=== PATIENT | female | born 1950 | race Caucasian/White ===

== ENCOUNTER → 2019-06-23 16:44 | Outpatient (CLI) | payer MEDICARE, OTHER, SELFPAY ==
--- NOTE | 2019-06-23 16:51 | CT_ITS ---
STUDY: CT SOFT TISSUE NECK WITH CONTRAST REASON FOR EXAM: Female, 69 years old. Neck mass RADIATION DOSAGE (If Supplied By Facility): CTDIvol = ( 22.94 ) mGy, DLP = ( 549.90 ) mGycm TECHNIQUE: The patient was scanned in a multi-detector CT scanner. High resolution transaxial imaging was performed following intravenous administration of 75 IV Isovue 370. Sagittal and coronal images were reconstructed. Individualized dose optimization techniques were used for this CT. COMPARISON: None. FINDINGS: Several images are limited due to scanning artifact caused by metallic dental work. Normal bilateral parotid glands. Normal bilateral jingle writer spaces. Normal bilateral parapharyngeal spaces. Normal bilateral carotid spaces. Normal bilateral sublingual and submandibular glands and spaces. Normal visualized nasopharynx. Normal retropharyngeal space. Normal perivertebral space. Normal visualized bilateral faucial tonsils. The visualized tongue, tongue base and oropharynx are normal. The visualized cervical lymph nodes (levels I-) are within normal size limits, and maintain normal morphology. There is no demonstrated solid or cystic mass lesion. There is no abnormal contrast enhancement. Normal epiglottis, bilateral vallecula and hypopharynx. The pre-epiglottic and paraglottic adipose spaces are normal. Normal visualized bilateral piriform sinuses, aryepiglottic folds, vocal cords, and arytenoid-cricoid articulations. Normal subglottic trachea. There is an enhancing right thyroid lobe nodule measuring 2.4 x 1.3 cm. Normal visualized pulmonary apices. Normal visualized paranasal sinuses. There is multilevel degenerative changes of the cervical spine. CT/Soft Tissue Neck WITH Contrast IMPRESSION: Enhancing right thyroid lobe nodule measuring 2.4 x 1.3 cm. Ultrasound correlation is recommended. Mild degenerative changes of the mid cervical spine. No cervical mass or adenopathy is identified. Electronically Signed: Jared Coburn MD at 19:00 EDT , Service support ,
== END ==
PROVIDERS: Family Provider Family Medicine; PCP Family Medicine; Referring Provider Otolaryngology; Visit Provider Otolaryngology
DX: R22.1 Localized swelling, mass and lump, neck (principal)
CPT/HCPCS: 70491; Q9967

== ENCOUNTER 2021-03-11 18:23 | Inpatient (IN) | payer MEDICARE, OTHER, SELFPAY ==
[2021-03-11 18:31] VITALS: BP 134/67; PULSE 81; RESP 18; TEMP 36.8; O2SAT 94
[2021-03-11 19:54] VITALS: BMI 35.2
--- NOTE | 2021-03-11 20:44 | HP.PCM_ITS ---
HPI - General General Date of Admission: 03/11/21 HPI Narrative 03/10/2021 ERIKA CANCHOLA, is a 70 Female who presents to [facility] with right hip pain status post fall. Patient was in her usual stage of health. She was gardening and she has to bend from the waist. She injured right knee 3 weeks ago, She saw her PCP previous week and was told it maybe a hamstring injury or ligamentous injury, no imaging done at that time. She has failed Lidoderm patches, NSAIDs. While gardening on day of admission, her right knee locked up and she fell landing on the right side. She hit her right hip and did not lose consciousness. No dizziness or lighthead edness preceded the fall. She was unable to stand up or move because of right hip pain. She crawled to her smoke house and called for help. In ER, Blood tests negative, COVID19 negative. X-ray right knee, hip negative for fracture, dislocation, but there is osteoarthritis right knee with moderate suprapatellar effusion. Percocet x 2 with little relief. In hospital, Tylenol, Toradol, Dilaudid for pain. CT right lower extremity without contrast ordered, results not available. PT/OT consult. PFSH Home Medications acetaminophen [Tylenol] 325 mg PO Q6H 03/11/21 [History Last Taken Unknown] alum-mag hydroxide-simeth [Mylanta] 1 tab PO Q6H PRN PRN 03/11/21 [History Last Taken Unknown] apremilast [Otezla] 30 mg PO DAILY 03/11/21 [History Last Taken Unknown] atorvastatin [Lipitor] 10 mg PO DAILY 03/11/21 [History Last Taken Unknown] biotin 1,000 mcg PO DAILY 03/11/21 [History Last Taken Unknown] bupropion HCl 150 mg PO BID 03/11/21 [History Last Taken Unknown] calcium carbonate-vitamin D3 [Calcium 600 + D(3)] 1 cap PO DAILY 03/11/21 [History Last Taken Unknown] cholecalciferol (vitamin D3) [Vitamin D3] 10 mcg PO QHS 03/11/21 [History Last Taken Unknown] diphenhydramine HCl [Benadryl] 25 mg PO QHS 03/11/21 [History Last Taken Unknown] docusate sodium [Colace] 100 mg PO BID 03/11/21 [History Last Taken Unknown] enoxaparin [Lovenox] 40 mg SUBCUT Q24H 03/11/21 [History Last Taken Unknown] esomeprazole magnesium [Nexium] 40 mg PO DAILY 03/11/21 [History Last Taken Unknown] hydromorphone 1 mg IV Q6H PRN 03/11/21 [History Last Taken Unknown] ketorolac 15 mg IV Q6H PRN 03/11/21 [History Last Taken Unknown] ondansetron HCl [Zofran] 4 mg IV Q6H PRN PRN 03/11/21 [History Last Taken Unknown] pediatric multivitamin no.76 [Flintstones Complete] 2 tab PO DAILY 03/11/21 [History Last Taken Unknown] Allergy/AdvReac Type Severity Reaction Status Date / Time No Known Allergies Allergy Verified 03/11/21 18:32 Family History (Updated 03/11/21 @ 20:[address] Alejandro Gillespie MD) Mother Kidney disease Father Brain cancer Surgical History (Updated 03/11/21 @ 20:[address] Alejandro Gillespie MD) History of bilateral cataract extraction History of right salpingo-oophorectomy History of Brittny-en-Y gastric bypass Social History (Updated 03/11/21 @ 20:[address] Alejandro Gillespie MD) household members: none Smoking Status: Former smoker Tobacco: How many years used: 40 alcohol intake: former details: Glass of wine with dinner ROS Constitutional Constitutional: Denies chills, fever(s) or weight gain ENT HEENT: Denies headache(s), nasal congestion or nasal discharge Cardiovascular Cardiovascular: Denies chest pain or palpitations Respiratory/Chest Respiratory/Chest: Denies cough, excessive phlegm production or shortness of breath with exertion Gastrointestinal Gastrointestinal: Denies abdominal pain, nausea or vomiting Genitourinary Genitourinary: Denies dysuria Musculoskeletal Musculoskeletal: Denies joint pain or joint swelling Integumentary Integumentary: Denies rash or wounds Neurologic Neurologic: Denies focal weakness, numbness or tingling Psychiatric Psychiatric: Reports auditory hallucinations; Denies anxiety, depression, homicidal ideation or suicidal ideation Vital Signs Vital Signs Vital Signs: 03/11/21 18:31 Temperature 98.2 F Temperature Source Temporal Pulse Rate 81 Respiratory Rate 18 Blood Pressure 134/67 H Blood Pressure Mean 89 Blood Pressure Source Monitor Blood Pressure Position Semi-Fowlers Blood Pressure Location Right Arm Pulse Ox 94 Oxygen Delivery Method Room Air Physical Exam Const alert and oriented x3 General Appearance: cooperative HEENT normocephalic Eyes PERRL and EOMs intact bilaterally Neck supple, no JVD and no carotid bruits Resp normal respiratory effort, normal air movement and clear to auscultation bilaterally Cardio regular rate and regular rhythm GI normal to inspection, nondistended, normoactive bowel sounds, non-tender and non-distended Extremity normal capillary refill General Extremity: Negative for edema Skin no rashes or lesions noted General Skin Exam: no breakdown Psych affect normal Appearance: appropriate Lab / Micro Data Result Diagrams: 03/12/21 05:17 03/12/21 05:17 Assessment & Plan Assessment/Plan (1) Debility: (2) Right hip pain: (3) Right knee pain: (4) Osteoarthritis of right knee: (5) Hyperlipidemia: (6) Plaque psoriasis: (7) Osteopenia: (8) Gastroesophageal reflux: (9) Depression: (10) Iron deficiency anemia: (11) Vitamin B12 deficiency: PLAN: 70 year old female with below past medical history hospitalized for intractable right hip pain, right knee pain, admitted to TCU with debility, here for rehabilitation, strengthening, prior to discharge home alone. * Debility - PT/OT. * Pain - Tylenol 1000MG TID, Tramadol 50MG Q6H PRN pain (1-5), Oxycodone 10MG Q4H PRN pain (6-10). * Bowel - Miralax 17GM daily, Senna/colace 2 tablets BID, Dulcolax 10MG daily PRN. * Adult immunization - Administer Prevnar 13, Pneumovax 23, COVID19 vaccine as appropriate. * DVT prophylaxis - Lovenox 40MG SC daily. * Hyperlipidemia - Atorvastatin 10MG daily. * Depression - Wellbutrin 150MG BID, stable chronic long-term use, GDR not recommended. * Calcium deficiency - Calcium D daily. * Vitamin B12 deficiency - B12 1000MCG daily. * Indigestion - Mylanta II 30ML Q4H PRN. * Nausea - Zofran 4MG ODT Q6H PRN. * GERD - Pantoprazole 40MG daily. * Insomnia - Melatonin 10MG QHS. * Right knee pain - Medrol dose pack. * Muscle spasm - Baclofen 10MG BID.
[2021-03-11] MEDS: Acetaminophen 500 MG Tablet 1000 MG PO (23:10)
[2021-03-11] MEDS: MELATONIN 10 MG TABLET PO (23:11)
[2021-03-12 04:39] VITALS: BP 124/56; PULSE 79; RESP 18; TEMP 36.2; O2SAT 94
[2021-03-12] MEDS: traMADol 50 MG Tablet PO ×2 (04:43→10:46)
[2021-03-12] MEDS: Atorvastatin Calcium 10 MG Tablet PO (04:45)
[2021-03-12] MEDS: buPROPion (SR) 150 MG Tablet.SA PO ×2 (04:54→17:56)
[2021-03-12 05:47] LABS: Absolute Lymphocyte Count 1.25 X10^3/uL (0.83-4.51); Absolute Neutrophil Count 2.2 X10^3/uL (2.0-7.7); Basophil# 0.02 X10^3/uL; Basophil% 0.5 % (0-1); Eosinophil# 0.08 X10^3/uL; Hematocrit 39.9 % (37-47); Hemoglobin 12.5 g/dL (12.0-15.0); Lymphocyte # 1.25 X10^3/ul (0.83-4.51); Lymphocyte % 31.1 % (19-41); Mean Corp Hgb Conc 31.3 g/dL (32-36); Mean Corpuscular Hgb 30.8 pg (27.0-32.0); Mean Corpuscular Volume 98.3 fL (81-99); Mean Platelet Vol. 11.3 fl (6.2-12.0); Monocyte# 0.44 X10^3/uL; Monocyte% 10.9 % (0-10); NRBC Flagged by Analyzer 0 % (0-5); Neutrophil # 2.23 X10^3/uL (2.7-7.7); Neutrophil % 55.5 % (47-70); Platelet Count 240 K/mm3 (150-450); RBC Distribution Width CV 12.7 % (11.6-14.6); Red Blood Count 4.06 M/mm3 (4.2-5.4)
[2021-03-12] MEDS: Enoxaparin 40 MG/0.4 ML Syringe SC (05:47)
[2021-03-12] MEDS: Acetaminophen 500 MG Tablet 1000 MG PO ×3 (05:47→20:40)
[2021-03-12 06:29] LABS: Anion Gap 4 (5-15); BUN 23 mg/dL (7-18); BUN/Creat Ratio 33.3 RATIO (10-20); Calcium,Total 9.2 mg/dL (8.5-10.1); Chloride 105 mmol/L (98-107); Creatinine, Serum 0.69 mg/dL (0.55-1.02); EST Glomerular Filtration Rate 90 mL/min (>60); Est Glom Filt Rate - Afr Amer 108 mL/min (>60); Estimated Creatinine Clearance 48.45 ml/min; Glucose 101 mg/dL (74-106); Potassium 3.9 mmol/L (3.5-5.1); Sodium Level 138 mmol/L (136-145)
[2021-03-12] MEDS: Cyanocobalamin 500 MCG Tablet 1000 MCG PO (08:35)
[2021-03-12] MEDS: Calcium Carb/Vitamin D 1 TABLET Tablet PO (08:35)
[2021-03-12] MEDS: Baclofen 10 MG Tablet PO ×2 (08:39→17:56)
[2021-03-12 10:00] VITALS: PULSE 74; RESP 18; O2SAT 94
[2021-03-12] MEDS: Tuberculin,Purif.prot.deriv. 50 TU/ML Vial 5 ML ID (10:58)
[2021-03-12] MEDS: MethylPREDNISolone DosePak 4 MG BOX PO ×3 (13:00→20:41)
--- NOTE | 2021-03-12 13:04 | CASEMGMT ---
Social Work Note SW met w/pt for initial assessment. CODE status reviewed, pt confirmed is a full code. MOLST form reviewed, communication to physician, form placed in chart. SW reviewed w/pt the Medicare group home benefit, explained pt is covered until 03/31, and on day 21 a copay of $186 would begin. Pt states her [place] may cover the copay, though pt does not anticipate needing to be here longer than 20 days. SW encouraged pt to call her insurance to find out about coverage for the copay days. Pt also inquired if she needs surgery and then needs to return, how this works. SW explained that if she left TCU and came back, coverage would picker packer on the day it left off. SW explained she needs to be facility free for 60 full days before getting coverage back. Upon discussing pt being her further, she had thought she was coming to rehab, not TCU. However, pt is in agreement w/being here, as she recognizes that she may not be able to do the amount of therapy required in rehab at present. We did talk about if she has surgery and wants to try for rehab after that, it may be possible for pt to go to rehab then--explained that we would not be able to know however until pt actually has surgery and after that. Pt states understanding. As of now, pt plans to return home from TCU, is open to home care vs. outpt PT. SW will continue to follow for discharge needs. RICHARD Rosas
--- NOTE | 2021-03-12 14:04 | PHA.CONS_ITS ---
Progress Note - Pharmacy Subjective: TCU Admission Objective: Allergies No Known Allergies Allergy (Verified 03/11/21 18:32) Current Medications Generic Name Dose Route Start Last Admin Trade Name Freq PRN Reason Stop Dose Admin Acetaminophen 1,000 mg 03/11/21 22:00 03/12/21 13:05 Acetaminophen 500 Mg Tablet PO 1,000 mg TID SULEIMAN Administration Al Hydroxide/Mg Hydroxide 30 ml 03/11/21 20:36 Mag Hydrox/Al Hydrox/Simeth 30 Ml Udc PO Q6H PRN PRN Stomach Upset Atorvastatin Calcium 10 mg 03/12/21 06:00 03/12/21 04:45 Atorvastatin Calcium 10 Mg Tablet PO 10 mg DAILY SULEIMAN Administration Baclofen 10 mg 03/12/21 18:00 Baclofen 10 Mg Tablet PO BID SULEIMAN Bisacodyl 10 mg 03/11/21 21:14 Bisacodyl 5 Mg Tablet PO DAILY PRN Constipation Bupropion HCl 150 mg 03/12/21 06:00 03/12/21 04:54 Bupropion (Sr) 150 Mg Tablet.Sa PO 150 mg BID SULEIMAN Administration Calcium/Vitamin D 1 tablet 03/12/21 08:00 03/12/21 08:35 Calcium Carb/Vitamin D 1 Tablet Tablet PO 1 tablet BREAKFAST SULEIMAN Administration Cyanocobalamin 1,000 mcg 03/12/21 08:00 03/12/21 08:35 Cyanocobalamin 500 Mcg Tablet PO 1,000 mcg BREAKFAST SULEIMAN Administration Enoxaparin Sodium 40 mg 03/12/21 06:00 03/12/21 05:47 Enoxaparin 40 Mg/0.4 Ml Syringe SC 40 mg DAILY@0600 SULEIMAN Administration Melatonin 10 mg 03/11/21 22:00 03/11/21 23:11 Melatonin 10 Mg Tablet PO 10 mg QHS SULEIMAN Administration Methylprednisolone 12 mg 03/12/21 12:00 03/12/21 13:00 Methylprednisolone Dosepak 4 Mg Box PO 03/17/21 04:59 12 mg 1200 SULEIMAN Administration Taper Multi-Ingredient Cream 1 applic 03/12/21 18:00 Mineral Oil/Petrolatum,White Jar TOPICAL BID [facility] Protocol Ondansetron HCl 4 mg 03/11/21 21:14 Ondansetron Odt 4 Mg Tablet PO Q8H PRN PRN NAUSEA Oxycodone HCl 10 mg 03/11/21 21:14 Oxycodone 5 Mg Tablet PO Q4H PRN PRN Pain Score 6-10 Pantoprazole Sodium 40 mg 03/12/21 06:00 03/12/21 05:13 Pantoprazole Sodium 40 Mg Tablet PO Not Given DAILY [facility] Polyethylene Glycol 17 gm 03/12/21 06:00 03/12/21 04:49 Polyethylene Glycol 3350 17 Gm Packet PO Not Given DAILY [facility] Polysaccharide Iron Complex 150 mg 03/13/21 08:00 Iron Polysaccharide Complex [facility] Senna/Docusate Sodium 2 tablet 03/12/21 06:00 03/12/21 04:54 Senna/Docusate Sodium 1 Tablet PO Not Given BID SULEIMAN Tramadol HCl 50 mg 03/11/21 21:14 03/12/21 10:46 Tramadol 50 Mg Tablet PO 50 mg Q6H PRN PRN Administration Pain Score 1-5 Tuberculin PPD 5 tu 03/19/21 10:00 Tuberculin,Purif.Prot.Deriv. 50 Tu/Ml Vial ID 03/19/21 10:01 X1 ONE Problem List (Last Reviewed 03/11/21 @ 20:[address] Alejandro Gillespie MD) Vitamin B12 deficiency (Acute) Iron deficiency anemia (Acute) Depression (Acute) Gastroesophageal reflux (Acute) Osteopenia (Acute) Plaque psoriasis (Acute) Hyperlipidemia (Acute) Osteoarthritis of right knee (Acute) Right knee pain (Acute) Right hip pain (Acute) Debility (Acute) Vital Signs Temp Pulse Resp BP Pulse Ox 97.1 F L 74 18 124/56 H 94 03/12/21 04:39 03/12/21 10:00 03/12/21 10:00 03/12/21 04:39 03/12/21 10:00 Oxygen Delivery Method Room Air Weight: 96.162 kg Body Mass Index (BMI) 35.2 Sodium 138 mmol/L (136-145) 03/12/21 05:17 Potassium 3.9 mmol/L (3.5-5.1) 03/12/21 05:17 Chloride 105 mmol/L (98-107) 03/12/21 05:17 Carbon Dioxide 29.0 mmol/L (21.0-32.0) 03/12/21 05:17 Anion Gap 4 (5-15) L 03/12/21 05:17 BUN 23 mg/dL (7-18) H 03/12/21 05:17 Creatinine 0.69 mg/dL (0.55-1.02) 03/12/21 05:17 Est GFR (MDRD) Af Amer 108 mL/min (>60) 03/12/21 05:17 Est GFR (MDRD) Non-Af 90 mL/min (>60) 03/12/21 05:17 BUN/Creatinine Ratio 33.3 RATIO (10-20) H 03/12/21 05:17 Glucose 101 mg/dL (74-106) 03/12/21 05:17 Assessment/Plan: 1. Pain: acetaminophen 1000mg PO TID, tramadol 50mg PO Q6H PRN pain (1-5) and oxycodone 10mg PO Q4H PRN pain (6-10). Please continue to monitor pain, PRN usage, constipation, and respiratory depression. 2. DVT prophylaxis: enoxaparin 40mg SC daily. Please continue to monitor renal function, platelets (last 240,000), hemoglobin (last 12.5g/dL) and S/S of bleeding. 3. Right knee pain: Medrol dose pack. Please continue to monitor taper through 03/17/21 and blood glucose (last 101 mg/dL).? *4. Hyperlipidemia: atorvastatin 10mg PO daily. Please considering ordering lipid panel. Patient does not have one in the chart. Thanks. 5. Indigestion/Nausea: Mylanta II 30ml PO Q6H PRN stomach upset and ondansetron ODT 4mg PO Q8H PRN nausea. Please continue to monitor stomach upset, nausea, and PRN usage. 6. GERD: pantoprazole 40mg PO daily. Please continue to monitor S/S of GERD and diarrhea. 7. Insomnia: melatonin 10mg PO QHS. Please continue to monitor insomnia. 8. Muscle spasm: baclofen 10mg PO BID. Please continue to monitor S/S of muscle spasm.? *9. Calcium deficiency/Vitamin B12 deficiency/Iron deficiency: Calcium/vitamin D 1T PO daily, cyanocobalamin 1000mcg PO daily and Ferrex 150mg PO daily with meals. Please consider ordering Vitamin D and Vitamin B12 levels if clinically appropriate. Patient does not have either level in chart. Thanks. Please continue to monitor calcium?(last 9.2 mg/dL), hemoglobin (last 12.5g/dL) and for dark stools. Psychotropic Medications: 1. Depression: bupropion SR 150mg PO BID. Please continue to monitor HR (last 79) and S/S of depression. Please see physician note regarding GDR.? Unnecessary Medications: None Bowel Regimen: Miralax 17gm PO daily, senna/docusate 2T PO BID and bisacodyl 10mg PO daily PRN constipation. Please continue to monitor constipation and PRN usage.? Date of Note:: 03/12/21
[2021-03-12 14:59] VITALS: BP 147/64; PULSE 72; RESP 17; TEMP 36.3; O2SAT 96
[2021-03-12] MEDS: MELATONIN 10 MG TABLET PO (20:40)
[2021-03-13 03:53] VITALS: BP 112/49; PULSE 80; RESP 18; TEMP 36.6; O2SAT 96
[2021-03-13] MEDS: Acetaminophen 500 MG Tablet 1000 MG PO ×3 (04:04→22:00)
[2021-03-13] MEDS: Enoxaparin 40 MG/0.4 ML Syringe SC (04:05)
[2021-03-13] MEDS: Pantoprazole Sodium 40 MG Tablet PO (04:05)
[2021-03-13] MEDS: Atorvastatin Calcium 10 MG Tablet PO (04:05)
[2021-03-13] MEDS: Baclofen 10 MG Tablet PO ×2 (04:05→17:39)
[2021-03-13] MEDS: buPROPion (SR) 150 MG Tablet.SA PO ×2 (04:05→17:39)
[2021-03-13] MEDS: Cyanocobalamin 500 MCG Tablet 1000 MCG PO (07:51)
[2021-03-13] MEDS: Iron Polysaccharide Complex 150 MG CAPSULE PO (07:51)
[2021-03-13] MEDS: Calcium Carb/Vitamin D 1 TABLET Tablet PO (07:51)
[2021-03-13] MEDS: MethylPREDNISolone DosePak 4 MG BOX PO ×4 (07:51→22:01)
[2021-03-13] MEDS: traMADol 50 MG Tablet PO (11:28)
[2021-03-13 14:28] VITALS: BP 147/72; PULSE 89; RESP 18; TEMP 36.8; O2SAT 95
[2021-03-13 22:00] VITALS: RESP 16
[2021-03-13] MEDS: DiphenhydrAMINE 25 MG Capsule PO (22:01)
[2021-03-13] MEDS: MELATONIN 10 MG TABLET PO (22:01)
[2021-03-14] MEDS: Acetaminophen 500 MG Tablet 1000 MG PO ×3 (04:35→21:13)
[2021-03-14] MEDS: Enoxaparin 40 MG/0.4 ML Syringe SC (04:37)
[2021-03-14] MEDS: buPROPion (SR) 150 MG Tablet.SA PO ×2 (04:37→17:38)
[2021-03-14] MEDS: Pantoprazole Sodium 40 MG Tablet PO (04:37)
[2021-03-14] MEDS: Baclofen 10 MG Tablet PO ×2 (04:37→17:39)
[2021-03-14] MEDS: Atorvastatin Calcium 10 MG Tablet PO (04:37)
[2021-03-14 04:50] VITALS: BP 128/68; PULSE 70; RESP 16; TEMP 36.4; O2SAT 95
[2021-03-14] MEDS: Cyanocobalamin 500 MCG Tablet 1000 MCG PO (07:53)
[2021-03-14] MEDS: Calcium Carb/Vitamin D 1 TABLET Tablet PO (07:53)
[2021-03-14] MEDS: Iron Polysaccharide Complex 150 MG CAPSULE PO (07:53)
[2021-03-14] MEDS: MethylPREDNISolone DosePak 4 MG BOX PO ×4 (07:54→21:12)
--- NOTE | 2021-03-14 11:07 | PCA ---
Addendum entered by Candie Cedeño 03/14/21 13:11: per patient daughter will now take her to her [facility] appt. I called [facility] to cancel transport Original Note: Scheduled appt with Dr. Martini at [facility] for WednesdayMarch 21 @ 2pm. Spoke with Meagan at [facility] to let her know pt will be going by w/c transport and will not have any friend/family to accompany her. [facility] to lease picker at noon. Nursing update
[2021-03-14] MEDS: traMADol 50 MG Tablet PO (12:36)
[2021-03-14 14:25] VITALS: BP 156/87; PULSE 89; RESP 16; TEMP 36.7; O2SAT 94
[2021-03-14 16:46] VITALS: PULSE 77; RESP 16; O2SAT 96
[2021-03-14] MEDS: DiphenhydrAMINE 25 MG Capsule PO (21:12)
[2021-03-14] MEDS: MELATONIN 10 MG TABLET PO (21:13)
[2021-03-15] MEDS: Acetaminophen 500 MG Tablet 1000 MG PO ×3 (04:34→20:56)
[2021-03-15] MEDS: Pantoprazole Sodium 40 MG Tablet PO (04:35)
[2021-03-15] MEDS: Atorvastatin Calcium 10 MG Tablet PO (04:35)
[2021-03-15] MEDS: Enoxaparin 40 MG/0.4 ML Syringe SC (04:35)
[2021-03-15] MEDS: Baclofen 10 MG Tablet PO ×2 (04:35→17:00)
[2021-03-15] MEDS: buPROPion (SR) 150 MG Tablet.SA PO ×2 (04:36→16:59)
[2021-03-15 04:41] VITALS: BP 134/66; PULSE 70; RESP 16; TEMP 36.8; O2SAT 99
[2021-03-15] MEDS: traMADol 50 MG Tablet PO (06:31)
[2021-03-15] MEDS: MethylPREDNISolone DosePak 4 MG BOX PO ×3 (08:04→21:04)
[2021-03-15] MEDS: Iron Polysaccharide Complex 150 MG CAPSULE PO (08:05)
[2021-03-15] MEDS: Cyanocobalamin 500 MCG Tablet 1000 MCG PO (08:05)
[2021-03-15] MEDS: Calcium Carb/Vitamin D 1 TABLET Tablet PO (08:05)
[2021-03-15 14:06] VITALS: BP 135/68; PULSE 62; RESP 18; TEMP 36.4; O2SAT 98
[2021-03-15] MEDS: MELATONIN 10 MG TABLET PO (20:57)
[2021-03-15] MEDS: DiphenhydrAMINE 25 MG Capsule PO (21:04)
[2021-03-16 05:00] VITALS: BP 135/73; PULSE 66; RESP 16; TEMP 36.6; O2SAT 100
[2021-03-16] MEDS: Enoxaparin 40 MG/0.4 ML Syringe SC (06:09)
[2021-03-16] MEDS: Acetaminophen 500 MG Tablet 1000 MG PO ×3 (06:09→21:36)
[2021-03-16] MEDS: Atorvastatin Calcium 10 MG Tablet PO (06:10)
[2021-03-16] MEDS: Pantoprazole Sodium 40 MG Tablet PO (06:10)
[2021-03-16] MEDS: buPROPion (SR) 150 MG Tablet.SA PO ×2 (06:10→16:57)
[2021-03-16] MEDS: Baclofen 10 MG Tablet PO ×2 (06:10→16:57)
[2021-03-16] MEDS: MethylPREDNISolone DosePak 4 MG BOX PO ×2 (08:45→21:37)
[2021-03-16] MEDS: Iron Polysaccharide Complex 150 MG CAPSULE PO (08:45)
[2021-03-16] MEDS: Calcium Carb/Vitamin D 1 TABLET Tablet PO (08:46)
[2021-03-16] MEDS: Cyanocobalamin 500 MCG Tablet 1000 MCG PO (08:46)
[2021-03-16 14:20] VITALS: BP 130/70; PULSE 74; RESP 16; TEMP 36.7; O2SAT 93
[2021-03-16] MEDS: MELATONIN 10 MG TABLET PO (21:39)
[2021-03-16] MEDS: DiphenhydrAMINE 25 MG Capsule PO (21:40)
[2021-03-17 05:00] VITALS: BP 112/66; PULSE 74; RESP 18; TEMP 36.6; O2SAT 97
[2021-03-17] MEDS: buPROPion (SR) 150 MG Tablet.SA PO ×2 (05:03→17:29)
[2021-03-17] MEDS: Pantoprazole Sodium 40 MG Tablet PO (05:03)
[2021-03-17] MEDS: Enoxaparin 40 MG/0.4 ML Syringe SC (05:03)
[2021-03-17] MEDS: Acetaminophen 500 MG Tablet 1000 MG PO ×3 (05:03→20:02)
[2021-03-17] MEDS: Atorvastatin Calcium 10 MG Tablet PO (05:03)
[2021-03-17] MEDS: Baclofen 10 MG Tablet PO ×2 (05:03→17:29)
[2021-03-17] MEDS: Cyanocobalamin 500 MCG Tablet 1000 MCG PO (08:04)
[2021-03-17] MEDS: Iron Polysaccharide Complex 150 MG CAPSULE PO (08:04)
[2021-03-17] MEDS: Calcium Carb/Vitamin D 1 TABLET Tablet PO (08:04)
[2021-03-17 12:59] VITALS: PULSE 76; O2SAT 95
[2021-03-17 13:40] VITALS: BP 125/62; PULSE 81; RESP 16; TEMP 36.4; O2SAT 99
[2021-03-17] MEDS: MELATONIN 10 MG TABLET PO (20:01)
[2021-03-17] MEDS: DiphenhydrAMINE 25 MG Capsule PO (20:01)
[2021-03-18 05:20] VITALS: BP 118/53; PULSE 65; RESP 16; TEMP 36.8; O2SAT 95
[2021-03-18] MEDS: Baclofen 10 MG Tablet PO ×2 (05:23→16:58)
[2021-03-18] MEDS: Atorvastatin Calcium 10 MG Tablet PO (05:23)
[2021-03-18] MEDS: Pantoprazole Sodium 40 MG Tablet PO (05:24)
[2021-03-18] MEDS: Acetaminophen 500 MG Tablet 1000 MG PO ×3 (05:24→22:26)
[2021-03-18] MEDS: Enoxaparin 40 MG/0.4 ML Syringe SC (05:24)
[2021-03-18] MEDS: buPROPion (SR) 150 MG Tablet.SA PO ×2 (05:24→16:58)
[2021-03-18] MEDS: Cyanocobalamin 500 MCG Tablet 1000 MCG PO (08:01)
[2021-03-18] MEDS: Iron Polysaccharide Complex 150 MG CAPSULE PO (08:01)
[2021-03-18] MEDS: Calcium Carb/Vitamin D 1 TABLET Tablet PO (08:01)
[2021-03-18 12:40] VITALS: PULSE 70; RESP 18; O2SAT 97
[2021-03-18 14:19] VITALS: BP 109/58; PULSE 70; RESP 16; TEMP 37; O2SAT 97
[2021-03-18] MEDS: DiphenhydrAMINE 25 MG Capsule PO (22:27)
[2021-03-18] MEDS: MELATONIN 10 MG TABLET PO (22:27)
[2021-03-19] MEDS: Acetaminophen 500 MG Tablet 1000 MG PO ×3 (05:27→20:52)
[2021-03-19] MEDS: Atorvastatin Calcium 10 MG Tablet PO (05:27)
[2021-03-19] MEDS: Enoxaparin 40 MG/0.4 ML Syringe SC (05:27)
[2021-03-19] MEDS: buPROPion (SR) 150 MG Tablet.SA PO ×2 (05:27→16:43)
[2021-03-19] MEDS: Pantoprazole Sodium 40 MG Tablet PO (05:27)
[2021-03-19] MEDS: Baclofen 10 MG Tablet PO ×2 (05:27→16:43)
[2021-03-19 05:31] VITALS: BP 119/61; PULSE 70; RESP 17; TEMP 36.4; O2SAT 95
[2021-03-19 05:46] LABS: Absolute Lymphocyte Count 1.74 X10^3/uL (0.83-4.51); Absolute Neutrophil Count 2.5 X10^3/uL (2.0-7.7); Basophil# 0.02 X10^3/uL; Basophil% 0.4 % (0-1); Eosinophils% 2.1 % (0-5); Hemoglobin 12.5 g/dL (12.0-15.0); Lymphocyte # 1.74 X10^3/ul (0.83-4.51); Lymphocyte % 35.8 % (19-41); Mean Corp Hgb Conc 31.3 g/dL (32-36); Mean Corpuscular Hgb 30.7 pg (27.0-32.0); Mean Corpuscular Volume 98.3 fL (81-99); Mean Platelet Vol. 11.3 fl (6.2-12.0); Monocyte# 0.48 X10^3/uL; Monocyte% 9.9 % (0-10); NRBC Flagged by Analyzer 0 % (0-5); Neutrophil # 2.51 X10^3/uL (2.7-7.7); Neutrophil % 51.6 % (47-70); Platelet Count 240 K/mm3 (150-450); RBC Distribution Width CV 12.8 % (11.6-14.6); RBC Distribution Width SD 46.1 fl (35.1-43.9); Red Blood Count 4.07 M/mm3 (4.2-5.4); White Blood Count 4.9 K/mm3 (4.4-11.0)
[2021-03-19 06:03] LABS: Anion Gap 5 (5-15); BUN 19 mg/dL (7-18); BUN/Creat Ratio 25.6 RATIO (10-20); Chloride 108 mmol/L (98-107); Creatinine, Serum 0.74 mg/dL (0.55-1.02); EST Glomerular Filtration Rate 83 mL/min (>60); Est Glom Filt Rate - Afr Amer 100 mL/min (>60); Estimated Creatinine Clearance 48.45 ml/min; Glucose 93 mg/dL (74-106); Potassium 3.9 mmol/L (3.5-5.1); Sodium Level 141 mmol/L (136-145)
[2021-03-19] MEDS: Iron Polysaccharide Complex 150 MG CAPSULE PO (08:25)
[2021-03-19] MEDS: Cyanocobalamin 500 MCG Tablet 1000 MCG PO (08:25)
[2021-03-19] MEDS: Calcium Carb/Vitamin D 1 TABLET Tablet PO (08:26)
--- NOTE | 2021-03-19 10:37 | CASEMGMT ---
Social Work IDT met with patient for care plan meeting. Discussed patient's progress in therapy and nursing. Pt progressing well. Awaiting outcome from 's appt 03/21. Pt to set DC date once plan is in place. Pt will DC home alone. Explained Medicare benefit and pt already contacted [facility] to ensure [facility] will cover [facility]. SW to order continued therapy and DME as needed. SW to continue to follow. Kristyn Corona, NAYELI DESK REPRESENTATIVE
[2021-03-19] MEDS: Tuberculin,Purif.prot.deriv. 50 TU/ML Vial 0.1 ML ID (11:41)
[2021-03-19 13:56] VITALS: BP 144/67; PULSE 90; RESP 17; TEMP 36.4; O2SAT 98
[2021-03-19] MEDS: MELATONIN 10 MG TABLET PO (20:52)
[2021-03-19] MEDS: DiphenhydrAMINE 25 MG Capsule PO (20:53)
--- NOTE | 2021-03-19 21:42 | NURSING ---
pt c/o that her psoriasis is getting worse/ c/o increase itchiness and that it is spreading to her left eye now and also getting into her hairline and scalp. Pt said that we was unable to give her own meds but she expressed frustration with knowing the pills are locked up in our med cabinet. Emotional support given. Note left for md in am to address and also left a message to see what the social media job titles can help.
[2021-03-20] MEDS: Baclofen 10 MG Tablet PO ×2 (06:07→18:06)
[2021-03-20] MEDS: Enoxaparin 40 MG/0.4 ML Syringe SC (06:07)
[2021-03-20] MEDS: buPROPion (SR) 150 MG Tablet.SA PO ×2 (06:07→18:10)
[2021-03-20] MEDS: Atorvastatin Calcium 10 MG Tablet PO (06:07)
[2021-03-20] MEDS: Acetaminophen 500 MG Tablet 1000 MG PO ×3 (06:07→21:32)
[2021-03-20] MEDS: Pantoprazole Sodium 40 MG Tablet PO (06:08)
[2021-03-20 06:11] VITALS: BP 116/70; PULSE 66; RESP 18; TEMP 36.6; O2SAT 94
[2021-03-20] MEDS: Iron Polysaccharide Complex 150 MG CAPSULE PO (09:06)
[2021-03-20] MEDS: Calcium Carb/Vitamin D 1 TABLET Tablet PO (09:06)
[2021-03-20] MEDS: Cyanocobalamin 500 MCG Tablet 1000 MCG PO (09:07)
--- NOTE | 2021-03-20 09:13 | CASEMGMT ---
Social Work Spoke with pt whom is requesting to DC home 03/21 after 's appt. Pt states regardless what 's recommends, she can sit at home and be NWB. Pt aware this date will be last day of therapy - pt agrees to DC prior to 's appt. Inquired about HHC or outpatient therapy. Pt requesting [facility] - referral made for PT/OT. No DME needs. Friend to transport. Plan: DC home alone 03/21 with [facility] PT/OT Kristyn Corona, CHILD CARE ASSOCIATE TEACHER DISTRIBUTION FIELD TECHNICIAN
--- NOTE | 2021-03-20 09:37 | NURSING ---
found pt up walking from bed to recliner. reminded pt she is not to be up with out help. pt stated well i thought therapy said i could. this nurse checked with therapy and they stated with 1 assist. stated to pt that therapy still has her at 1 assist. pt stated ok.
[2021-03-20 13:42] VITALS: PULSE 78; RESP 16; O2SAT 94
[2021-03-20 13:53] VITALS: BP 153/80; PULSE 75; RESP 18; TEMP 36.2; O2SAT 96
--- NOTE | 2021-03-20 20:17 | DS.PCM_ITS ---
Providers Date of Admission: 03/11/21 Primary Care Physician: Dr. Eladio Wilson MD Reason For Visit: FALL, RIGHT HIP AND KNEE PAIN Diagnosis Discharge Diagnosis (1) Debility: Status: Acute Code(s): R53.81 - Other malaise (2) Right hip pain: Status: Acute Code(s): M25.551 - Pain in right hip (3) Right knee pain: Status: Acute Code(s): M25.561 - Pain in right knee (4) Osteoarthritis of right knee: Status: Acute Code(s): M17.11 - Unilateral primary osteoarthritis, right knee (5) Hyperlipidemia: Status: Acute Code(s): E78.5 - Hyperlipidemia, unspecified (6) Plaque psoriasis: Status: Acute Code(s): L40.0 - Psoriasis vulgaris (7) Osteopenia: Status: Acute Code(s): M85.80 - Other specified disorders of bone density and structure, unspecified site (8) Gastroesophageal reflux: Status: Acute Code(s): K21.9 - Gastro-esophageal reflux disease without esophagitis (9) Depression: Status: Acute Code(s): F32.9 - Major depressive disorder, single episode, unspecified (10) Iron deficiency anemia: Status: Acute Code(s): D50.9 - Iron deficiency anemia, unspecified (11) Vitamin B12 deficiency: Status: Acute Code(s): E53.8 - Deficiency of other specified B group vitamins Medications at Discharge Home Medications Calcium 600 + D(3) 1 cap PO DAILY 03/11/21 Flintstones Complete 2 tab PO DAILY 03/11/21 Otezla 30 mg PO DAILY 03/11/21 acetaminophen [Tylenol] 325 mg PO Q6H 03/11/21 alum-mag hydroxide-simeth 1 tab PO Q6H PRN PRN 03/11/21 atorvastatin [Lipitor] 10 mg PO DAILY 03/11/21 biotin 1,000 mcg PO DAILY 03/11/21 bupropion HCl 150 mg PO BID 03/11/21 cholecalciferol (vitamin D3) [Vitamin D3] 10 mcg PO QHS 03/11/21 diphenhydramine HCl [Benadryl] 25 mg PO QHS 03/11/21 docusate sodium [Colace] 100 mg PO BID 05/18/21 enoxaparin [Lovenox] 40 mg SUBCUT Q24H 03/11/21 esomeprazole magnesium [Nexium] 40 mg PO DAILY 03/11/21 hydromorphone 1 mg IV Q6H PRN 03/11/21 ketorolac 15 mg IV Q6H PRN 03/11/21 ondansetron HCl 4 mg IV Q6H PRN PRN 03/11/21 baclofen 10 mg PO BID 30 Days #60 tab 03/20/21 Hospital Course Operations None Procedures None Summary of Care Provided Minutes Spent on Discharge: 35 Hospital Course: 70 year old female with below past medical history hospitalized for intractable right hip pain, right knee pain, admitted to TCU with debility, here for rehabilitation, strengthening, prior to discharge home alone. 03/13/2021 MRI right knee showed small impaction fracture posterior lateral corner of the lateral femoral condyle. Acute contusions, multiple tiny contusions. 03/21/[address] Darío Martini right knee pain. Discharge home alone 03/21/2021 with [facility] PT/OT. Physical Exam Const alert and oriented x3 General Appearance: cooperative HEENT normocephalic Eyes PERRL and EOMs intact bilaterally Neck supple, no JVD and no carotid bruits Resp normal respiratory effort, normal air movement and clear to auscultation bilaterally Cardio regular rate and regular rhythm GI normal to inspection, nondistended, normoactive bowel sounds, non-tender and non-distended Extremity normal capillary refill General Extremity: Negative for edema Skin no rashes or lesions noted General Skin Exam: no breakdown Psych affect normal Appearance: appropriate ABG / Lab / Microbiology Data Result Diagrams: 03/19/21 05:25 03/19/21 05:25 D/C Instructions Discharge Diet: No restrictions Discharge Activity: Return to Normal Activity, May Shower and Use Walker Weight Bearing Status: No weight bearing (Right lower extremity.) Call your doctor if you observe: Fever of 101 or Higher, Inability to urinate, Inability to have a bowel movement, Shortness of breath, Fainting spells, Chest pain and Uncontrolled pain Additional Instructions: Discharge home alone 03/21/2021 with [facility] PT/OT. Please Follow Up With: Darío Martini MD When: 03/21/2021. Meaningful Use Info Meaningful Use Diagnoses (Choose all that apply): None applicable Discharge Plan Admission Admit Date/Time: 03/11/21 18:23 Primary Reason for Your Visit: Debility Attending Provider: Alejandro Gillespie Chi Primary Care Provider: Eladio Wilson Instructions Additional Instructions / Restrictions: Discharge home alone 03/21/2021 with [facility] PT/OT. Discharge Orders/Prescriptions Prescriptions: New baclofen 10 mg Tablet 10 mg PO BID 30 Days Qty: 60 RF: 0 Continued bupropion HCl 150 mg Tablet Sustained-Release 12 Hr 150 mg PO BID RF: 0 acetaminophen [Tylenol] 325 mg Tablet 325 mg PO Q6H RF: 0 atorvastatin [Lipitor] 10 mg Tablet 10 mg PO DAILY RF: 0 ondansetron HCl 2 mg/mL Solution 4 mg IV Q6H PRN PRN (Reason: Nausea) RF: 0 alum-mag hydroxide-simeth 200-200-20 mg Tablet,Chewable 1 tab PO Q6H PRN PRN (Reason: Stomach Upset) RF: 0 diphenhydramine HCl [Benadryl] 25 mg Capsule 25 mg PO QHS RF: 0 esomeprazole magnesium [Nexium] 40 mg Capsule,Delayed Release(Dr/Ec) 40 mg PO DAILY RF: 0 docusate sodium [Colace] 100 mg Capsule 100 mg PO BID RF: 0 enoxaparin [Lovenox] 40 mg/0.4 mL Syringe 40 mg SUBCUT Q24H RF: 0 cholecalciferol (vitamin D3) [Vitamin D3] 10 mcg (400 unit) Capsule 10 mcg PO QHS RF: 0 hydromorphone 1 mg/mL Syringe 1 mg IV Q6H PRN (Reason: pain 7-10) RF: 0 ketorolac 15 mg/mL Syringe 15 mg IV Q6H PRN (Reason: Pain 4-6) RF: 0 Calcium 600 + D(3) 600 mg calcium- 200 unit Capsule 1 cap PO DAILY RF: 0 Otezla 30 mg Tablet 30 mg PO DAILY RF: 0 Flintstones Complete Tablet,Chewable 2 tab PO DAILY RF: 0 biotin 1,000 mcg Tablet,Chewable 1,000 mcg PO DAILY RF: 0 Referrals / Follow Up: Eladio Wilson MD [Primary Care Provider] - Disposition Disposition (needs filled in before D/C Order can be placed): Home Health Servic e
[2021-03-20] MEDS: DiphenhydrAMINE 25 MG Capsule PO (21:32)
[2021-03-20] MEDS: MELATONIN 10 MG TABLET PO (21:32)
[2021-03-21 01:22] VITALS: BP 120/72; PULSE 77; RESP 16; TEMP 36.5; O2SAT 96
[2021-03-21] MEDS: Baclofen 10 MG Tablet PO (05:59)
[2021-03-21] MEDS: buPROPion (SR) 150 MG Tablet.SA PO (06:00)
[2021-03-21] MEDS: Pantoprazole Sodium 40 MG Tablet PO (06:00)
[2021-03-21] MEDS: Enoxaparin 40 MG/0.4 ML Syringe SC (06:00)
[2021-03-21] MEDS: Acetaminophen 500 MG Tablet 1000 MG PO ×2 (06:00→12:58)
[2021-03-21] MEDS: Atorvastatin Calcium 10 MG Tablet PO (06:00)
[2021-03-21] MEDS: Calcium Carb/Vitamin D 1 TABLET Tablet PO (08:45)
[2021-03-21] MEDS: Iron Polysaccharide Complex 150 MG CAPSULE PO (08:46)
[2021-03-21] MEDS: Cyanocobalamin 500 MCG Tablet 1000 MCG PO (08:46)
--- NOTE | 2021-03-21 11:25 | MDS.RN ---
Information for the mds was obtained from review of the clinical record, interview of resident, staff, and direct observation of resident's care.
[2021-03-21 12:20] VITALS: PULSE 75; RESP 18; O2SAT 97
[2021-03-21 16:39] VITALS: BP 127/71; PULSE 75; RESP 18; TEMP 36.6; O2SAT 97
== END 2021-03-21 13:15 | disposition home health service (06) | DRG 554 ==
PROVIDERS: Admitting Provider Family Medicine Geriatric Medicine; PCP Family Medicine; Visit Provider Family Medicine Geriatric Medicine
DX: M17.11 Unilateral primary osteoarthritis, right knee (principal); M25.551 Pain in right hip; E78.5 Hyperlipidemia, unspecified; L40.0 Psoriasis vulgaris; K21.9 Gastro-esophageal reflux disease without esophagitis; F32.9 Major depressive disorder, single episode, unspecified; Z79.899 Other long term (current) drug therapy; Z87.891 Personal history of nicotine dependence; Z98.84 Bariatric surgery status; D50.9 Iron deficiency anemia, unspecified; E53.8 Deficiency of other specified B group vitamins; S72.421D Displaced fracture of lateral condyle of right femur, subsequent encounter for closed fracture with routine healing; W19.XXXD Unspecified fall, subsequent encounter
CPT/HCPCS: 36415; 80048; 85025; 87635; 97110; 97116; 97162; 97166; 97530; 97535; 97802; U0002

== ENCOUNTER → 2021-03-13 14:49 | Outpatient (CLI) | payer MEDICARE, OTHER, SELFPAY ==
[2021-03-11 19:54] VITALS: BMI 35.2
--- NOTE | 2021-03-13 14:51 | MRI_ITS ---
STUDY: MRI RIGHT KNEE REASON FOR EXAM: Female, 70 years old. unable to bear weight since falling 03/10/21; original knee injury 4 wks ago TECHNIQUE: Standardized fat and water weighted pulse sequences were obtained in all 3 orthogonal planes. COMPARISON: None. FINDINGS: A small impaction fracture is present at the posterior lateral corner of the lateral femoral condyle. Mild to moderate patchy edema is present in the central and posterior aspect of the lateral femoral condyle compatible with an acute contusion. Minor contusions are also present in the posterior aspect of the medial femoral condyle and medial tibial plateau and in the fibular head. Small lobular intraosseous ganglion cyst of the distal femoral shaft noted. Normal medial meniscus. Normal hyaline cartilage of the medial femorotibial compartment. Normal medial collateral ligamentous complex (MCL). Normal distal semimembranosus, gracilis and semitendinosus tendons. Normal lateral meniscus. Normal hyaline cartilage of the lateral femorotibial compartment. Normal proximal tibiofibular articulation. Normal lateral collateral (fibular) ligament. Normal popliteus tendon. Normal biceps femoris tendon. Normal anterior cruciate ligament (ACL). Normal posterior cruciate ligament (PCL). Normal congruent patellofemoral articulation. Normal hyaline cartilage of the patellofemoral compartment. Normal medial and lateral patellar retinaculum. Normal quadriceps tendon. Normal patellar tendon. Normal Hoffa''s fat pad. Small to moderate size joint effusion is present. The soft tissues are unremarkable. The otherwise visualized osseous structures are unremarkable. MRI/Lower Ext Joint Only (Routine) IMPRESSION: 1. A small impaction fracture is present at the posterior lateral corner of the lateral femoral condyle. Mild to moderate patchy edema is present in the central and posterior aspect of the lateral femoral condyle compatible with an acute contusion. 2. Minor contusions are also present in the posterior aspect of the medial femoral condyle and medial tibial plateau and in the fibular head. 3. Small to moderate size joint effusion. Electronically Signed: Abdi Oliva MD at 16:56 EDT , Service support ,
== END ==
PROVIDERS: PCP Family Medicine; Visit Provider Family Medicine Geriatric Medicine
DX: M25.561 Pain in right knee (principal)
CPT/HCPCS: 73721